=== PATIENT | female | born 1975 | race Caucasian/White ===

== ENCOUNTER 2016-05-17 13:20 | Inpatient (IN) | payer BC ==
[2016-05-17] MEDS ORDERED: ACETAMINOPHEN IV (For NPO) 1,000 MG in EMPTY BAG 1 BAG IVPB ONE (13:41)
[2016-05-17] MEDS ORDERED: ONDANSETRON 4 MG/2 ML VIAL IVP STA (13:41)
[2016-05-17] MEDS ORDERED: SODIUM CHLORIDE 0.9% 1,000 ML IV STA (13:41)
[2016-05-17] MEDS ORDERED: RX INFO: IV CONTRAST WAS GIVEN 1 EACH MISC MISCELLANE PRN (13:49)
--- NOTE | 2016-05-17 13:53 | ED ---
Abdominal Pain HPI - General Source: patient, RN notes reviewed Mode of arrival: ambulatory Limitations: no limitations <Cailin Moore - Last Filed: 05/17/16 16:37> <Wisam Pettit - Last Filed: 05/17/16 16:42> - General Chief Complaint: Abdominal Pain Stated Complaint: Nausea/Lower Rt Abd Pain Time Seen by Provider: 05/17/16 13:31 - History of Present Illness Initial Comments: 41-year-old female presents to emergency department with a chief complaint of right lower quadrant abdominal pain. Patient states that last night she developed this right lower quadrant abdominal pain. Patient states that she noticed that she had a low-grade fever as well. Patient states she's had nausea without vomiting and has had a decreased appetite. Patient denies any surgeries on the abdomen. Patient states just progressively seemed to be worsening so she thought that she should be evaluated. Patient states that she does have an IUD in place. Patient denies any changes in urination. (Cailin Moore ) - Related Data Home Medications Medication Instructions Recorded Confirmed Docusate [Colace] 100 mg PO DAILY PRN 05/17/16 05/17/16 Allergies Allergy/AdvReac Type Severity Reaction Status Date / Time No Known Allergies Allergy Verified 05/17/16 13:44 Review of Systems ROS Other: All systems not noted in ROS Statement are negative. <Cailin Moore - Last Filed: 05/17/16 16:37> ROS Other: All systems not noted in ROS Statement are negative. <Wisam Pettit - Last Filed: 05/17/16 16:42> ROS Statement: Those systems with pertinent positive or pertinent negative responses have been documented in the HPI. Past Medical History Past Medical History: No Reported History History of Any Multi-Drug Resistant Organisms: None Reported Past Surgical History: Orthopedic Surgery Past Psychological History: No Psychological Hx Reported Smoking Status: Current every day smoker Past Alcohol Use History: Occasional Past Drug Use History: None Reported <Cailin Moore - Last Filed: 05/17/16 16:37> General Exam Limitations: no limitations <Cailin Moore - Last Filed: 05/17/16 16:37> General appearance: alert, anxious Head exam: Present: atraumatic, normocephalic, normal inspection Eye exam: Present: normal appearance, PERRL, EOMI. Absent: scleral icterus, conjunctival injection, periorbital swelling ENT exam: Present: normal exam, mucous membranes dry Neck exam: Present: normal inspection. Absent: tenderness, meningismus, lymphadenopathy Respiratory exam: Present: rhonchi. Absent: respiratory distress, rales, stridor Cardiovascular Exam: Present: regular rate, normal rhythm, normal heart sounds. Absent: systolic murmur, diastolic murmur, rubs, gallop, clicks GI/Abdominal exam: Present: soft, distended, guarding (RLQ), normal bowel sounds. Absent: tenderness, rebound, rigid Extremities exam: Present: normal inspection, full ROM, normal capillary refill. Absent: tenderness, pedal edema, joint swelling, calf tenderness Back exam: Present: normal inspection Neurological exam: Present: alert, oriented X3, CN II-XII intact Psychiatric exam: Present: normal affect, normal mood Skin exam: Present: warm, dry, intact, normal color. Absent: rash <Wisam Pettit - Last Filed: 05/17/16 16:42> - General Exam Comments Initial Comments: General: The patient is awake and alert, in no distress, and does not appear acutely ill. Eye: Pupils are equal, round and reactive to light, extra-ocular movements are intact; there is normal conjunctiva bilaterally. No signs of icterus. Ears, nose, mouth and throat: There are moist mucous membranes and no oral lesions. Neck: The neck is supple, there is no tenderness. Cardiovascular: There is a regular rate and rhythm. No murmur, rub or gallop is appreciated. Respiratory: Lungs are clear to auscultation, respirations are non-labored, breath sounds are equal. No wheezes, stridor, rales, or rhonchi. Gastrointestinal: Soft, non-distended, mild tenderness in right lower Quadrant of the abdomen without masses or organomegaly noted. There is no rebound or guarding present. No CVA tenderness. Patient has a mildly positive heel jar, mildly positive liters, negative Romberg's. Bowel sounds are unremarkable. Back: There is no tenderness to palpation in the midline. There is no obvious deformity. No rashes noted. Musculoskeletal: Normal ROM, no tenderness, There is no pedal edema. There is no calf tenderness or swelling. Sensation intact. Pulses equal bilaterally 2+. Neurological: CN II-XII intact, There are no obvious motor or sensory deficits. Coordination appears grossly intact. Speech is normal. Skin: Skin is warm and dry and no rashes or lesions are noted. Psychiatric: Cooperative, appropriate mood & affect, normal judgment. (Cailin Moore) Course <Cailin Moore - Last Filed: 05/17/16 16:37> <Wisam Pettit - Last Filed: 05/17/16 16:42> Vital Signs 05/17/16 13:27 Temperature 100.7 F H Pulse Rate 74 Respiratory 20 Rate Blood Pressure 133/73 O2 Sat by Pulse 96 Oximetry - Reevaluation(s) Reevaluation #1: 05/17/16 16:38 Dr. Koch did not request antibiotics for the patient. (Cailin Moore) Reevaluation #2: 05/17/16 16:41 With patient regarding findings, call Dr. Koch regarding patient's findings on CAT scan, patient is aware of uterus fibroids and possible CVA (Wisam Pettit) Medical Decision Making - Lab Data Result diagrams: 05/17/16 13:50 05/17/16 13:50 - Radiology Data Radiology results: report reviewed, image reviewed <Cailin Moore - Last Filed: 05/17/16 16:37> - Lab Data Result diagrams: 05/17/16 13:50 05/17/16 13:50 - Radiology Data Radiology results: report reviewed (CT pelvis positive for appendicitis) <Wisam Pettit - Last Filed: 05/17/16 16:42> - Medical Decision Making 41-year-old female presents emergency Department chief complaint of right lower quadrant abdominal pain. This time CAT scan results reviewed as well as patient 's laboratory. Tender suspicion for acute appendicitis. Dr. Koch was paged for the patient. We did also discuss the [facility] results we discussed follow-up with [facility] patient states that she will do this. This and the patient will be admitted to Dr. Koch. And she will take him to or at this time. (Cailin Moore) 41 female at ER for evaluation of abdominal pain, positive CT for appendicitis, patient will be admitted for surgical intervention (Wisam Pettit) - Lab Data Lab Results 05/17/16 05/17/16 05/17/16 Range/Units 13:50 13:50 13:50 WBC 12.9 H (3.8-10.6) k/uL RBC 4.31 (3.80-5.40) m/uL Hgb 13.8 (11.4-16.0) gm/dL Hct 40.9 (34.0-46.0) % MCV 94.9 (80.0-100.0) fL MCH 32.0 (25.0-35.0) pg MCHC 33.7 (31.0-37.0) g/dL RDW 12.4 (11.5-15.5) % Plt Count 267 (150-450) k/uL Neutrophils % 85 % Lymphocytes % 6 % Monocytes % 8 % Eosinophils % 0 % Basophils % 0 % Neutrophils # 11.0 H (1.3-7.7) k/uL Lymphocytes # 0.8 L (1.0-4.8) k/uL Monocytes # 1.0 (0-1.0) k/uL Eosinophils # 0.0 (0-0.7) k/uL Basophils # 0.0 (0-0.2) k/uL Sodium 137 (137-145) mmol/L Potassium 4.0 (3.5-5.1) mmol/L Chloride 101 (98-107) mmol/L Carbon Dioxide 27 (22-30) mmol/L Anion Gap 9 mmol/L BUN 13 (7-17) mg/dL Creatinine 0.60 (0.52-1.04) mg/dL Est GFR (MDRD) Af Amer >60 (>60 ml/min/1.73 sqM) Est GFR (MDRD) Non-Af >60 (>60 ml/min/1.73 sqM) Glucose 107 H (74-99) mg/dL Plasma Lactic Acid [place] 0.9 (0.7-2.0) mmol/L Calcium 9.5 (8.4-10.2) mg/dL Total Bilirubin 1.2 (0.2-1.3) mg/dL AST 25 (14-36) U/L ALT 29 (9-52) U/L Alkaline Phosphatase 66 (38-126) U/L Total Protein 7.1 (6.3-8.2) g/dL Albumin 4.3 (3.5-5.0) g/dL Amylase 54 (30-110) U/L Lipase 58 (23-300) U/L Urine Color Urine Appearance (Clear) Urine pH (5.0-8.0) Ur Specific [place] (1.001-1.035) Urine Protein (Negative) Urine Glucose (UA) (Negative) Urine Ketones (Negative) Urine Blood (Negative) Urine Nitrite (Negative) Urine Bilirubin (Negative) Urine Urobilinogen (<2.0) mg/dL Ur Leukocyte Esterase (Negative) 05/17/16 Range/Units 14:30 WBC (3.8-10.6) k/uL RBC (3.80-5.40) m/uL Hgb (11.4-16.0) gm/dL Hct (34.0-46.0) % MCV (80.0-100.0) fL MCH (25.0-35.0) pg MCHC (31.0-37.0) g/dL RDW (11.5-15.5) % Plt Count (150-450) k/uL Neutrophils % % Lymphocytes % % Monocytes % % Eosinophils % % Basophils % % Neutrophils # (1.3-7.7) k/uL Lymphocytes # (1.0-4.8) k/uL Monocytes # (0-1.0) k/uL Eosinophils # (0-0.7) k/uL Basophils # (0-0.2) k/uL Sodium (137-145) mmol/L Potassium (3.5-5.1) mmol/L Chloride (98-107) mmol/L Carbon Dioxide (22-30) mmol/L Anion Gap mmol/L BUN (7-17) mg/dL Creatinine (0.52-1.04) mg/dL Est GFR (MDRD) Af Amer (>60 ml/min/1.73 sqM) Est GFR (MDRD) Non-Af (>60 ml/min/1.73 sqM) Glucose (74-99) mg/dL Plasma Lactic Acid [place] (0.7-2.0) mmol/L Calcium (8.4-10.2) mg/dL Total Bilirubin (0.2-1.3) mg/dL AST (14-36) U/L ALT (9-52) U/L Alkaline Phosphatase (38-126) U/L Total Protein (6.3-8.2) g/dL Albumin (3.5-5.0) g/dL Amylase (30-110) U/L Lipase (23-300) U/L Urine Color Yellow Urine Appearance Clear (Clear) Urine pH 7.5 (5.0-8.0) Ur Specific [place] 1.018 (1.001-1.035) Urine Protein Trace H (Negative) Urine Glucose (UA) Negative (Negative) Urine Ketones Negative (Negative) Urine Blood Negative (Negative) Urine Nitrite Negative (Negative) Urine Bilirubin Negative (Negative) Urine Urobilinogen <2.0 (<2.0) mg/dL Ur Leukocyte Esterase Negative (Negative) Disposition Time of Disposition: 16:18 Decision Date: 05/17/16 Decision Time: 16:18 <Cailin Moore - Last Filed: 05/17/16 16:37> <Wisam Pettit - Last Filed: 05/17/16 16:42> Clinical Impression: Acute appendicitis Disposition: ADMITTED IP TO THIS [facility] Condition: Stable Referrals: Girma Bernstein DO [Primary Care Provider] - 1-2 days
[2016-05-17 14:17] LABS: Basophils % (A) 0 %; CH 32.7; CHCM 34.6; Eosinophils % (A) 0 %; HCT 40.9 % (34.0-46.0); HDW 2.31; HGB 13.8 gm/dL (11.4-16.0); Luc # (Auto) 0.16; Luc % (Auto) 1; Lymphocytes # (A) 0.8 k/uL (1.0-4.8); Lymphocytes % (A) 6 %; MCHC 33.7 g/dL (31.0-37.0); MCV 94.9 fL (80.0-100.0); Mean Platelet Volume 7.4; Monocytes % (A) 8 %; Neutrophils % (A) 85 %; RBC 4.31 m/uL (3.80-5.40); RDW 12.4 % (11.5-15.5); WBC 12.9 k/uL (3.8-10.6); WBC (Perox) 13.05
[2016-05-17 14:25] LABS: ALT 29 U/L (9-52); AST 25 U/L (14-36); Alkaline Phosphatase 66 U/L (38-126); Amylase 54 U/L (30-110); Anion Gap 9 mmol/L; Blood Urea Nitrogen 13 mg/dL (7-17); Calcium 9.5 mg/dL (8.4-10.2); Carbon Dioxide 27 mmol/L (22-30); Chloride 101 mmol/L (98-107); Glucose 107 mg/dL (74-99); Non-African American GFR(MDRD) >60 (>60 ml/min/1.73 sqM); Sodium 137 mmol/L (137-145); Total Bilirubin 1.2 mg/dL (0.2-1.3); Total Protein 7.1 g/dL (6.3-8.2)
[2016-05-17 14:48] LABS: Appearance,Urine Clear (Clear); Bilirubin,Urine Negative (Negative); Glucose,Urine (UA) Negative (Negative); Ketones,Urine Negative (Negative); Leukocyte Esterase,Urine Negative (Negative); Nitrite,Urine Negative (Negative); PH, Urine 7.5 (5.0-8.0); Protein,Urine Trace (Negative); Specific Gravity,Urine 1.018 (1.001-1.035); UA Billing (MACRO vs. MICRO) CHEM; Urobilinogen,Urine <2.0 mg/dL (<2.0)
--- NOTE | 2016-05-17 16:14 | CT ---
EXAMINATION TYPE: CT abdomen pelvis w con DATE OF EXAM: 05/17/2016 3:40 PM HISTORY: RLQ pain CT DLP: 989mGycm Automated Exposure Control for Dose Reduction was Utilized. CONTRAST: CT scan of the abdomen and pelvis is performed without oral but with IV Contrast, patient injected wi th 100 ml mL of Omnipaque 300. COMPARISON: None. FINDINGS: LUNG BASES: No significant abnormality is appreciated. LIVER/GB: No significant abnormality is appreciated. PANCREAS: No significant abnormality is seen. SPLEEN: No significant abnormality is seen. ADRENALS: No significant abnormality is seen. KIDNEYS: No significant abnormality is seen. BOWEL: Evaluation of bowel is suboptimal due to lack of enteric contrast. Indication patient has very little intra-abdominal fat. There is no suspicious small or large bowel dilatation. There is abnorma l tubular shaped structure in the right lower quadrant from base of cecum measuring up to 8 mm with s urrounding fat stranding and ill-defined fluid worrisome for acute appendicitis. Appendix is identifi ed on coronal images 33 through 43 and axial images 47 through 52. No free air or adjacent well-forme d fluid collection/abscess is identified. UTERUS/ADNEXA: Uterus is heterogeneous in appearance, anteverted in shape, and somewhat prominent in size. There is more suspicious heterogeneous pelvic mass in the lower uterine segment/cervix measurin g 8.1 x 7.6 cm, cervical neoplasm needs to BE considered. Correlation with Pap smear and pelvic exam is advised. Differential includes a large inferior fibroid but this is felt less likely. There is sm all to moderate amount of free fluid in the pelvis right of midline adjacent to sigmoid rectal colon on axial image 68 extending superiorly. There are additional heterogeneous lesions scattered througho ut the uterus suspicious for fibroids. Normal-appearing ovaries are not well seen. LYMPH NODES: No greater than 1cm abdominal or pelvic lymph nodes are appreciated. OSSEOUS STRUCTURES: Disc space narrowing with sclerosis lumbosacral junction is noted. OTHER: No significant additional abnormality is seen. IMPRESSION: 1. Suboptimal study with CT findings suggesting acute appendicitis as detailed above. 2. Abnormal pelvic findings with small to moderate free fluid in pelvis seen heterogeneous fibroid ut erus, heterogeneous cervical mass could reflect large inferior fibroid but cervical mass/neoplasm is not excluded. Correlation with Pap smear and direct pelvic exam advised. Case discussed with ordering emergency care physician assistant store director via telephone at time of dictation.
[2016-05-17] MEDS ORDERED: HYDROmorphone 1 MG/ML 1 ML SYRINGE IV PRN (16:18)
[2016-05-17] MEDS ORDERED: NALOXONE 0.4 MG/ML 1 ML VIAL IV PRN (16:18)
[2016-05-17] MEDS ORDERED: ONDANSETRON 4 MG/2 ML VIAL IVP PRN ×2 (16:18→17:41)
[2016-05-17] MEDS ORDERED: SODIUM CHLORIDE 0.9% 1,000 ML IV SCH (16:30)
[2016-05-17] MEDS ORDERED: HEPARIN SODIUM,PORCINE 5,000 UNIT/ML 1 ML VIAL SQ ONE (17:27)
[2016-05-17] MEDS ORDERED: AMPICILLIN-SULBACTAM 3 GM in SODIUM CHLORIDE 0.9% 100 ML IVPB STA (17:27)
[2016-05-17] MEDS ORDERED: ceFAZolin 2 GM in SODIUM CHLORIDE 0.9% 100 ML IVPB ONE (17:35)
[2016-05-17] MEDS ORDERED: PROPOFOL 10 MG/ML 20 ML VIAL IV ONE (17:36)
[2016-05-17] MEDS ORDERED: IV FLUID CONTINUATION 1,000 ML IV ONE ×2 (17:36)
[2016-05-17] MEDS ORDERED: GLYCOPYRROLATE 0.2 MG/ML 2 ML VIAL ONE (17:36)
[2016-05-17] MEDS ORDERED: LIDOCAINE 1% INJ 10MG/ML (20 ML MDV) ONE (17:36)
[2016-05-17] MEDS ORDERED: fentaNYL (PF) 50 MCG/ML 2 ML AMP ONE (17:36)
[2016-05-17] MEDS ORDERED: NEOSTIGMINE 1 MG/ML 10 ML VIAL ONE (17:36)
[2016-05-17] MEDS ORDERED: ONDANSETRON 4 MG/2 ML VIAL ONE (17:36)
[2016-05-17] MEDS ORDERED: MIDAZOLAM 2 MG/2 ML VIAL ONE (17:36)
[2016-05-17] MEDS ORDERED: KETOROLAC 30 MG/ML 1 ML VIAL ONE (17:36)
[2016-05-17] MEDS ORDERED: ROCURONIUM BROMIDE 10 MG/ML 10 ML VIAL IV ONE (17:36)
--- NOTE | 2016-05-17 17:39 | P.GSHP ---
History of Present Illness H&P Date: 05/17/16 Chief Complaint: Acute appendicitis 41 years old female presents with one-day history of right lower quadrant pain. No fever, chills or rigors. Loss of appetite. Known uterine fibroids with heavy menstrual flow, currently controlled with IUD placement. She follows up with Dr. Zazueta as outpatient. No other medical conditions - Review of Systems Comment: All negative except stated in history of present illness Past Medical History Past Medical History: No Reported History History of Any Multi-Drug Resistant Organisms: None Reported Past Surgical History: Orthopedic Surgery Past Psychological History: No Psychological Hx Reported Smoking Status: Current every day smoker Past Alcohol Use History: Occasional Past Drug Use History: None Reported Medications and Allergies Home Medications Medication Instructions Recorded Confirmed Type Docusate [Colace] 100 mg PO DAILY PRN 05/17/16 05/17/16 History Allergies Allergy/AdvReac Type Severity Reaction Status Date / Time No Known Allergies Allergy Verified 05/17/16 13:44 Surgical - Exam Vital Signs Temp Pulse Resp BP Pulse Ox 100.7 F H 74 20 133/73 96 05/17/16 13:27 05/17/16 13:27 05/17/16 13:27 05/17/16 13:27 05/17/16 13:27 General: Patient is alert and oriented to time, place and person and cooperative with exam. . HEENT: No pallor, no icterus Chest: Bilateral equal breath sounds present. No wheezes, no crackles. Cardiovascular: Regular rate and rhythm. Abdomen: Localized right lower quadrant tenderness. Integumentary: No active ulcers or discharge. Neurologic: Cranial nerves II-XII intact. Strength upper and lower extremities 5/5. No focal neurologic deficits. Gait is normal. Psychiatric: No anxiety or psychosis. Results - Labs 05/17/16 13:50 05/17/16 13:50 - Imaging CT scan - abdomen: other (Computed tomography scan of the abdomen and pelvis reviewed. Dilated appendix with fat stranding suggestive of acute appendicitis. Free fluid in the pelvis. Large uterus or possibly fibroids with intrauterine device) Assessment and Plan (1) Fibroid Status: Acute (2) Acute appendicitis Status: Acute Plan: 1. Acute appendicitis 2. Fibroid uterus 3. Informed consent obtained from the patient after explaining the risks, benefits and potential complications and she elected to undergo laparoscopic appendectomy possible open. The risks including bleeding, infection, possibility of converting into open, partial colectomy were discussed and patient elected to undergo the procedure 4. Heparin 5000 units subcu to his injection 1 5. Bilateral SCDs 6. Ancef 2 g IV piggyback 1
[2016-05-17] MEDS ORDERED: HYDROmorphone 1 MG/ML 1 ML SYRINGE IVP PRN (17:40)
[2016-05-17] MEDS ORDERED: BUPIVACAIN-EPI 0.25%-1:200,000 30 ML VIAL SQ ONE ×3 (17:41→17:58)
[2016-05-17] MEDS ORDERED: SODIUM CHLORIDE 0.9% 100 ML with ceFAZolin 2,000 MG IV ONE ×4 (17:42)
--- NOTE | 2016-05-17 18:33 | P.OP ---
Date of Procedure: 05/17/16 Preoperative Diagnosis: Acute appendicitis Enlarged uterus secondary to fibroid Small umbilical hernia defect-reducible Postoperative Diagnosis: Same Procedure(s) Performed: Laparoscopic appendectomy Primary umbilical hernia repair with out mesh Implants: NA Anesthesia: EVA, local Surgeon: Marlee Koch Pathology: other Condition: other (ASA 1 E) Disposition: PACU Indications for Procedure: 41 years old female with known history of uterine fibroids comes with a one-day history of right lower quadrant pain. CT suggestive of acute appendicitis. Informed consent obtained and patient elected to undergo laparoscopic appendectomy possible open. Operative Findings: Acute suppurative appendicitis Description of Procedure: The patient was brought to the operating room and placed in supine position with left arm tucked and a footboard was placed. General anesthesia with endotracheal intubation was performed as per anesthesia team. A Fagan catheter was inserted under sterile aseptic precautions. Chlorhexidine was used to prep the abdomen followed by application of sterile drapes. A timeout was performed to verify correct patient and correct procedure. Patient was confirmed to receive perioperative IV antibiotics, subcutaneous heparin for VTE prophylaxis and bilateral SCDs were placed. A 5 mm skin incision was made in the left anterior axillary line and a Veress needle was inserted into the peritoneal cavity and CO2 insufflated to a pressure of 15 mmHg. A 5 mm Optiview trocar was loaded on a 5 mm 30 laparoscope and peritoneal cavity was entered under direct vision. An additional 5 mm trocar was placed in the suprapubic location in midline and a 12 mm trocar in the supraumbilical location through the umbilical hernia defect Patient was placed in Trendelenburg with right side up. The appendix was identified. It appeared inflamed. There were fibrinopurulent exudates in the right lower quadrant. The appendix was grasped using a laparoscopic [place] instrument. A suction irrigation device was used to gently dissecting appendix from the surrounding tissue. All the fibrinous exudates were removed. A window was made in the mesoappendix close to the cecal base using a [place] dissector. Laparoscopic Ligasure was used to divide the mesoappendix. No bleeding noted from the mesoappendiceal stump. The appendix was divided at its base, at the confluence of three tenia using Ethicon stapler 45 blue load. The staple line was intact without evidence of bleeding. The appendix was placed in an endocatch bag and was retrieved through the infraumbilical port site. All the trocar sites were examined and no evidence of bleeding. Excess fluid was suctioned out. The 12 mm trocar site including the umbilical hernia was closed using three transfascial sutures of 0 Vicryl which were placed using a Godwin Haley device. Local anesthetic was infiltrated along all the ports sites. The sponge, instrument and needle count were correct x2. CO2 gas was evacuated and trocars were removed. 4-0 Monocryl was used to close the skin incisions followed by Dermabond skin glue. Patient tolerated the procedure well and was taken to post anesthesia care unit in stable condition.
[2016-05-17 20:05] VITALS: BMI 22.4
[2016-05-17] MEDS: DEXTROSE 5%-0.45% NACL 1,000 ML IV SCH (20:34)
[2016-05-17] MEDS: ACETAMINOPHEN TAB 325 MG TAB PO PRN (22:44)
[2016-05-18] MEDS: ACETAMINOPHEN TAB 325 MG TAB PO PRN ×2 (04:36→11:10)
[2016-05-18] MEDS: DEXTROSE 5%-0.45% NACL 1,000 ML IV SCH (04:38)
[2016-05-18 07:44] LABS: Basophils % (A) 0 %; CH 32.6; CHCM 33.9; Eosinophils % (A) 1 %; HCT 37.3 % (34.0-46.0); HDW 2.27; HGB 12.2 gm/dL (11.4-16.0); Luc # (Auto) 0.09; Luc % (Auto) 1; Lymphocytes # (A) 0.7 k/uL (1.0-4.8); Lymphocytes % (A) 10 %; MCH 31.8 pg (25.0-35.0); MCHC 32.9 g/dL (31.0-37.0); MCV 96.7 fL (80.0-100.0); Mean Platelet Volume 7.5; Monocytes # (A) 0.4 k/uL (0-1.0); Monocytes % (A) 5 %; Neutrophils # (A) 6.1 k/uL (1.3-7.7); Neutrophils % (A) 83 %; RBC 3.85 m/uL (3.80-5.40); RDW 12.4 % (11.5-15.5); WBC 7.4 k/uL (3.8-10.6); WBC (Perox) 8.19
[2016-05-18 07:49] LABS: ALT 19 U/L (9-52); AST 19 U/L (14-36); Alkaline Phosphatase 51 U/L (38-126); Anion Gap 7 mmol/L; Blood Urea Nitrogen 7 mg/dL (7-17); Calcium 8.7 mg/dL (8.4-10.2); Carbon Dioxide 27 mmol/L (22-30); Chloride 106 mmol/L (98-107); Glucose 111 mg/dL (74-99); Non-African American GFR(MDRD) >60 (>60 ml/min/1.73 sqM); Sodium 140 mmol/L (137-145); Total Bilirubin 1.1 mg/dL (0.2-1.3); Total Protein 5.9 g/dL (6.3-8.2)
--- NOTE | 2016-05-18 09:02 | P.OBCN ---
History of Present Illness Consult date: 05/18/16 Requesting physician: Girma Bernstein Reason for consult: pelvic mass Chief complaint: acute appendicitis status post appendectomy History of present illness: patient is a 41-year-old female well known to me from previous visits. I did place a Mirena IUD in approximately 2 years ago for menorrhagia. She has known fibroid uterus and in speaking with her this morning she related that we had talked about potentially doing hysterectomy a couple of years ago due to the large fibroid but she had opted for a more conservative treatment plan. I did review her chart briefly and did note that she had a normal Pap smear in July 2015. We will more thoroughly go through the chart once I get back to my office so that I can review past ultrasounds and have a comparison. We'll order an ultrasound for this morning transvaginally so we have some type of idea of exactly what we're looking at within her uterus. Pelvic exam is performed uterus is slightly enlarged and globular. Cervix is shortened and cervix is open approximately 1 cm with a palpable fullness in the posterior aspect of the lower uterine segment/paracervical region. I suspect this represents the fibroid. While I cannot say for certain she does not have some type cancer of the cervix or uterus, she does have a history of fibroids and this seems at least at this time to be more likely scenario. We'll have her get the ultrasound today she is being discharged later today from her surgery. We'll plan to see her in the office in 1 week to compare films and make a long-term treatment plan. Past Medical History Past Medical History: No Reported History History of Any Multi-Drug Resistant Organisms: None Reported Past Surgical History: Orthopedic Surgery Additional Past Surgical History / Comment(s): Right Meniscus repair. ACL repair on right x2 Past Anesthesia/Blood Transfusion Reactions: No Reported Reaction Past Psychological History: No Psychological Hx Reported Smoking Status: Current every day smoker Past Alcohol Use History: Occasional Past Drug Use History: None Reported - Past Family History Father Family Medical History: Hypertension Medications and Allergies Home Medications Medication Instructions Recorded Confirmed Type Docusate [Colace] 100 mg PO DAILY PRN 05/17/16 05/17/16 History Allergies Allergy/AdvReac Type Severity Reaction Status Date / Time No Known Allergies Allergy Verified 05/17/16 20:05 Exam Osteopathic Statement: *. No significant issues noted on an osteopathic structural exam other than those noted in the History and Physical/Consult. - Vital Signs Vital signs: Vital Signs Temp Pulse Pulse Resp BP BP Pulse Ox 05/18/16 07:00 98.1 F 65 20 114/72 97 05/18/16 04:49 98.1 F 76 18 117/64 97 05/17/16 22:54 98.9 F 70 16 116/69 98 05/17/16 21:20 64 16 117/70 100 05/17/16 21:05 69 16 113/70 97 05/17/16 20:50 62 16 118/73 98 05/17/16 20:35 66 16 116/70 96 05/17/16 20:20 66 16 119/70 99 05/17/16 20:05 66 16 117/71 100 05/17/16 19:50 64 16 117/70 100 05/17/16 19:35 69 16 113/70 97 05/17/16 19:25 16 05/17/16 19:20 97.7 F 62 16 118/73 05/17/16 19:00 66 18 129/75 96 05/17/16 18:46 74 18 127/67 100 05/17/16 18:35 97.7 F 76 16 125/71 100 05/17/16 17:29 97.7 F 64 16 117/70 98 05/17/16 16:43 99.2 F 73 18 128/76 97 Intake and Output 05/17/16 05/18/16 05/18/16 22:59 06:59 14:59 Intake Total 900 400 Output Total 305 400 400 Balance 595 0 -400 Intake: IV 700 Oral 200 400 Output: Urine 300 400 400 Estimated Blood Loss 5 Other: Voiding Method Toilet Toilet # Voids 1 1 Weight 74.843 kg Results Result Diagrams: 05/18/16 07:08 05/18/16 07:08 Abnormal Lab Results - Last 24 Hours (Table) 05/18/16 05/18/16 Range/Units 07:08 07:08 Lymphocytes # 0.7 L (1.0-4.8) k/uL Glucose 111 H (74-99) mg/dL Total Protein 5.9 L (6.3-8.2) g/dL Albumin 3.3 L (3.5-5.0) g/dL
--- NOTE | 2016-05-18 09:40 | P.DS ---
Providers Date of admission: 05/17/16 16:42 Expected date of discharge: 05/18/16 Attending physician: Marlee Alaniz Consults: 05/17/16 17:12 Consult Physician Routine Consulting Provider: Robbi Cottrell Consult Reason/Comments: Fibroids Do you want consulting provider notified?: Already Contacted Primary care physician: [facility] Course: A 41-year-old female presented with a one-day history of right lower quadrant abdominal pain. Patient denied any fever chills or rigors. Denied a loss of appetite. Patient does have a known history of uterine fibroids with heavy menstrual flow currently controlled with an IUD placement. In the outpatient setting patient stated that she does follow-up with [facility] Dr. cottrell patient was seen in the emergency room and a Computed tomography scan of the abdomen and pelvis showed evidence suggestive of an acute appendicitis. Patient elected to undergo laparoscopic appendectomy with a primary umbilical hernia repair without mesh. Patient is being treated for acute appendicitis. There was a small umbilical hernia defect reducible. Postop the patient was seen by [facility] Dr. cottrell who ordered an ultrasound to be done of the pelvic. After the ultrasound the patient be discharged follow-up in the office in one week and make a long-term treatment plan at that time.. Postop patient was up ambulating remained afebrile Tylenol is effective for pain control patient was felt to be hemodynamically stable and appropriate to proceed with a discharge to home Impression discharge diagnosis Present on admission one day history of right lower quadrant pain likely due to an acute appendicitis Postop May 17 upper as copy appendectomy with a primary umbilical hernia repair without mesh Known enlarged uterus secondary to a fibroid History of menorrhagia with an IUD placed approximately 2 years ago Present on admission febrile leukocytosis meet SIRS criteria no evidence of sepsis suspect due to acute appendicitis resolved The above dictated assessment and findings were discussed with dr alaniz Impression and the plan of care have been dictated as directed. Kerry Rogel nurse practitioner acting as a scribe for dr alaniz Patient Condition at Discharge: Stable Plan - Discharge Summary Discharge Medication List Docusate [Colace] 100 mg PO DAILY PRN 05/17/16 [History] Acetaminophen Tab [Tylenol] 650 mg PO Q6HR PRN #0 tab 05/18/16 [Rx] Follow up Appointment(s)/Referral(s): Robbi Cottrell DO [Doctor of Osteopathic Medicine] - 05/26/16 3:30 pm Girma Bernstein DO [Primary Care Provider] - 1-2 days Marlee Alaniz MD [STAFF PHYSICIAN] - 1 Week Activity/Diet/Wound Care/Special Instructions: A return to work after being seen in a follow-up visit dr alaniz No heavy lifting over 10 pounds until seen in office visit in one week Discharge Disposition: HOME SELF-CARE
--- NOTE | 2016-05-18 10:49 | US ---
EXAMINATION TYPE: US transvaginal DATE OF EXAM: 05/18/2016 10:35 AM COMPARISON: CT abdomen pelvis from yesterday CLINICAL HISTORY: cervical mass. Abnormal recent CT. TECHNIQUE: Transvaginal (TV) only per Date of LMP: Patient has IUD, she did have some spotting x 1 week prior and believes this could have been her cycle EXAM MEASUREMENTS: Uterus: 10.5 x 6.4 x 8.9 cm Endometrial Stripe: 1.0 cm Right Ovary: not visualized cm Left Ovary: 3.6 x 2.2 x 2.1 cm TECHNOLOGIST IMPRESSION: 1. Uterus: Anteverted Fibroid uterus, large mass probably in cervix, however it is difficult to as certain, mass displaces things and does have the appearance of a fibroid measuring 7.4 x 6.1 x 8.2cm 2. Endometrium: difficult to match with LMP since patient is unsure of cycle 3. Right Ovary: Obscured by overlying bowel gas 4. Left Ovary: wnl Spectral, color and waveform doppler imaging shows good arterial and venous flow within the ovaries ; there is no evidence for ovarian torsion. 5. Bilateral Adnexa: wnl 6. Posterior cul-de-sac: wnl Initial images of the cervix show ill-defined heterogeneous mass differential includes prominent lowe r uterine segment fibroid versus cervical mass/neoplasm. Uterus is markedly heterogeneous in appearan ce. Endometrial stripe is not well seen. IUD is likely satisfactory in position on CT as is central i n location, it is less well-seen on ultrasound. No free fluid is seen in pelvis. Left ovary is identified. Right ovary is not clearly seen. No suspicious adnexal masses are present. IMPRESSION: Corresponding to CT there is ill-defined heterogeneous large lower uterine segment or cer vical mass, differential remains low lying fibroid extending into cervix versus cervical mass/neoplas m. Background of heterogeneous fibroid uterus is noted making former favored over latter. Correlatio n with pelvic physical exam and Pap smear advised. Follow-up pelvic MRI may be beneficial to further assess.
[2016-05-18 11:04] VITALS: BP 118/77; PULSE 68; RESP 16; TEMP 98.9
== END 2016-05-18 13:41 | disposition home or self-care (01) | DRG 343 ==
LOC: EC 13:20 → 3SUR 16:42 → 6PED 18:44
PROVIDERS: ADMIT Surgery; ATTEND Surgery
PROC: 0WQF4ZZ Repair Abdominal Wall, Percutaneous Endoscopic Approach (ICD-10-PCS; 2016-05-17)
PROC: 0DTJ4ZZ Resection of Appendix, Percutaneous Endoscopic Approach (ICD-10-PCS; principal; 2016-05-17 17:30)
DX: K35.80 Unspecified acute appendicitis (principal); D25.9 Leiomyoma of uterus, unspecified; F17.200 Nicotine dependence, unspecified, uncomplicated; K42.9 Umbilical hernia without obstruction or gangrene; N92.0 Excessive and frequent menstruation with regular cycle; Z97.5 Presence of (intrauterine) contraceptive device; Z82.49 Family history of ischemic heart disease and other diseases of the circulatory system
CPT/HCPCS: 36415; 74177; 76830; 80053; 81003; 81025; 82150; 83605; 83690; 85025; 87040; 87086; 88304; 96361; 96365; 96375; 99285

== ENCOUNTER → 2016-08-07 | Outpatient (CLI) | payer BC ==
[2016-08-07 10:50] LABS: Basophils % (A) 1 %; CH 33.1; CHCM 33.2; Eosinophils # (A) 0.1 k/uL (0-0.7); Eosinophils % (A) 3 %; HCT 42.5 % (34.0-46.0); HDW 2.14; HGB 13.8 gm/dL (11.4-16.0); Luc # (Auto) 0.11; Luc % (Auto) 3; Lymphocytes # (A) 1.3 k/uL (1.0-4.8); Lymphocytes % (A) 40 %; MCH 32.5 pg (25.0-35.0); MCHC 32.4 g/dL (31.0-37.0); MCV 100.1 fL (80.0-100.0); Mean Platelet Volume 7.4; Monocytes # (A) 0.3 k/uL (0-1.0); Monocytes % (A) 10 %; Neutrophils # (A) 1.4 k/uL (1.3-7.7); Neutrophils % (A) 43 %; RBC 4.24 m/uL (3.80-5.40); RDW 13.2 % (11.5-15.5); WBC 3.3 k/uL (3.8-10.6); WBC (Perox) 3.34
[2016-08-07 11:20] LABS: Anion Gap 8 mmol/L; Blood Urea Nitrogen 14 mg/dL (7-17); Calcium 9.7 mg/dL (8.4-10.2); Carbon Dioxide 29 mmol/L (22-30); Chloride 103 mmol/L (98-107); Glucose 82 mg/dL (74-99); Non-African American GFR(MDRD) >60 (>60 ml/min/1.73 sqM); Potassium 4.9 mmol/L (3.5-5.1); Sodium 140 mmol/L (137-145)
== END | disposition home or self-care (01) ==
LOC: LABPAT 09:41
PROVIDERS: ATTEND Obstetrics & Gynecology
DX: Z01.812 Encounter for preprocedural laboratory examination (principal)
CPT/HCPCS: 80048; 85025; 86850; 86900; 86901

== ENCOUNTER 2016-08-17 06:04 | Inpatient (IN) | payer BC ==
[2016-08-13 17:00] VITALS: BMI 23.0
[~2016-08-17 06:04] MED LIST: DEXAMETHASONE SOD PHOSPHATE 10 MG/ML 1 ML VIAL IV ONE; HYDROmorphone 1 MG/ML 1 ML SYRINGE IVP PRN; ONDANSETRON 4 MG/2 ML VIAL IVP ONE; Pre Op ABX Message 1 EACH MISC MISCELLANE ONE; ceFAZolin 2 GM in SODIUM CHLORIDE 0.9% 100 ML IVPB ONE
[2016-08-17] MEDS ORDERED: LIDOCAINE 1% 20 ML VIAL (10MG/ML) FOR IV START INTRADERMA ONE (06:39)
[2016-08-17] MEDS: LACTATED RINGERS 1,000 ML IV SCH (06:39)
[2016-08-17] MEDS ORDERED: SCOPOLAMINE 1.5MG/72HR PATCH TRANSDERM STA (06:59)
--- NOTE | 2016-08-17 07:37 | P.HPOB ---
History of Present Illness H&P Date: 08/17/16 Chief Complaint: fibroid uterus Patient is a 41 year old female with a large cervical fibroid. Multiple u/s have been obtained on Annamaria and we have been following the fibroid for a number of years with minimal change. she is now uncomfortable with the fibroid with increase in pressure and pain and would like removal. she is sched for a TEMI poss bso due to location of the fibroid and will have stents placed prior to hysterecomy to help with ureteral location with large cervical fibroid. r/b/a reviewed with patient in detail and all questions are answered for her prior to surgery. Past Medical History Past Medical History: No Reported History Additional Past Medical History / Comment(s): FIBROID UTERUS. History of Any Multi-Drug Resistant Organisms: None Reported Past Surgical History: Appendectomy, Hernia Repair, Orthopedic Surgery Additional Past Surgical History / Comment(s): Right Meniscus repair. ACL repair on right x2. LAP APPENDECTOMY, UMB HERNIA 04/2016 Past Anesthesia/Blood Transfusion Reactions: Postoperative Nausea & Vomiting ( PONV) Smoking Status: Never smoker - Past Family History Father Family Medical History: Hypertension Medications and Allergies Home Medications Medication Instructions Recorded Confirmed Type Mirena Iud 1 applic INTRAUTERI CONTINUOUS 08/13/16 History Allergies Allergy/AdvReac Type Severity Reaction Status Date / Time No Known Allergies Allergy Verified 08/13/16 16:41 Exam Osteopathic Statement: *. No significant issues noted on an osteopathic structural exam other than those noted in the History and Physical/Consult. - Vital Signs Vital signs: Vital Signs Temp Pulse Resp BP Pulse Ox 08/17/16 06:23 98.0 F 48 L 18 126/73 99 - OBG Physical Exam Breast: both: normal (no masses) Abdomen: bowel sounds normal, no diffuse tenderness, no bruit present, no guarding noted, no hepatomegaly, no splenomegaly, no mass Vulva: both: normal Vagina: normal moisture, no discharge Cervix: lesion Uterus: enlarged Adnexa: both: normal
[2016-08-17] MEDS ORDERED: SUCCINYLCHOLINE CHLORIDE 100 MG/5 ML SYR IV ONE (07:39)
[2016-08-17] MEDS ORDERED: KETOROLAC 30 MG/ML 1 ML VIAL ONE (07:39)
[2016-08-17] MEDS ORDERED: fentaNYL (PF) 50 MCG/ML 2 ML AMP ONE (07:39)
[2016-08-17] MEDS ORDERED: NEOSTIGMINE 1 MG/ML 10 ML VIAL ONE (07:39)
[2016-08-17] MEDS ORDERED: HYDROmorphone (PF) 1 MG/ML ONE (07:39)
[2016-08-17] MEDS ORDERED: ePHEDrine 50 MG/ML 1 ML AMP ONE (07:39)
[2016-08-17] MEDS ORDERED: ROCURONIUM BROMIDE 10 MG/ML 10 ML VIAL IV ONE (07:39)
[2016-08-17] MEDS ORDERED: GLYCOPYRROLATE 0.2 MG/ML 2 ML VIAL ONE (07:39)
[2016-08-17] MEDS ORDERED: LIDOCAINE 1% INJ 10MG/ML (20 ML MDV) ONE (07:39)
[2016-08-17] MEDS ORDERED: PROPOFOL 10 MG/ML 20 ML VIAL IV ONE (07:39)
[2016-08-17] MEDS ORDERED: MIDAZOLAM 2 MG/2 ML VIAL ONE (07:39)
--- NOTE | 2016-08-17 08:17 | P.OP ---
Date of Procedure: 08/17/16 Preoperative Diagnosis: Uterine Fibroid Postoperative Diagnosis: Same Procedure(s) Performed: Cystoscopy with Bilateral Ureteral Catheter Insertion Implants: Anesthesia: EVA Surgeon: Dillon Jones Estimated Blood Loss (ml): 0 IV fluids (ml): 300 Pathology: none sent Condition: stable Disposition: PACU Indications for Procedure: The patient is a 41-year-old white female scheduled to undergo a TEMI for uterine fibroids. Due to the size of the uterus, ureteral catheter placement has been requested. Operative Findings: Normal bladder. Ureteral catheters passed up to the renal pelvis bilaterally without resistance. Description of Procedure: The patient was taken to the operating room and placed in the dorsolithotomy position, with legs supported in Bubba stirrups. The external genitalia was prepped and draped sterilely. The 30 lens was used to introduce the 19-Indian Stortz cystoscopic sheath through the urethra and into the bladder under direct vision. The bladder was examined in its entirety. Both ureteral orifices were of normal anatomic location and configuration, and clear urine effluxed from both. No tumors or foreign bodies were seen. A 5-Indian whistle-tip catheter was passed through the cystoscope. The left ureteral orifice was cannulated, and the ureteral catheter was advanced up to the left renal pelvis. The same was then repeated on the contralateral side. Both catheters passed without resistance. The bladder was emptied and the cystoscope removed. A 16-Indian Fagan catheter was placed. Using an 18-gauge needle, each of the ureteral catheters were passed through the wall of the Fagan catheter and into the lumen. The ureteral catheters were then tied to the Fagan catheter using silk suture, and the Fagan catheter was connected to gravity drainage.
[2016-08-17] MEDS ORDERED: LACTATED RINGERS 1,000 ML IV ONE (08:34)
[2016-08-17] MEDS ORDERED: SIMETHICONE 80 MG CHEWABLE PO PRN (09:41)
[2016-08-17] MEDS ORDERED: Acetaminophen-Codeine 300-30mg TAB PO PRN ×2 (09:41)
[2016-08-17] MEDS ORDERED: diphenhydrAMINE 50 MG/ML 1 ML VIAL IVP PRN (09:41)
[2016-08-17] MEDS ORDERED: HYDROmorphone PCA 5 MG/25 ML SYRINGE IV PRN (09:43)
[2016-08-17] MEDS ORDERED: NALOXONE 0.4 MG/ML 1 ML VIAL IV PRN (09:43)
--- NOTE | 2016-08-17 09:50 | P.OP ---
Date of Procedure: 08/17/16 Preoperative Diagnosis: Fibroid uterus: Large cervical fibroid Postoperative Diagnosis: Same Procedure(s) Performed: Total abdominal hysterectomy Implants: Anesthesia: EVA Surgeon: Robbi Cottrell Radio Electrician #1: Gil Lomeli Estimated Blood Loss (ml): 250 IV fluids (ml): 800 Urine output (ml): 200 Pathology: other (Uterus and cervix) Condition: stable Disposition: floor Indications for Procedure: Operative Findings: Large cervical fibroid with multiple other fibroids within the body of the uterus Description of Procedure: Patient was taken to the operating suite where a general anesthetic found be adequate. Initially Dr. Jones placed bilateral ureteral stents. These were used to help guide removal of uterus. Once stents were placed patient was positioned in a dorsal supine position and she was prepped and draped in the normal sterile fashion. A Pfannenstiel skin incision was then created and this incision was carried through to the underlying layer of the fascia with the second knife. Fascia was then nicked in midline and this opening was extended laterally with Valenzuela scissors. Superior and inferior aspect of this incision were then grasped tented up and bluntly and sharply dissected off the rectus muscles. Rectus muscles were then divided in the midline and blunt dissection through the peritoneum was made. This opening was then extended superiorly and inferiorly with good visualization of both bowel and bladder. Self-retaining retractors and placed Allis packed out of the operative field bladder blade was placed patient was then moved into a steep Trendelenburg position. Initially 2 long Edith clamps and were used to grasp the adnexa bilaterally and the uterus was elevated. He clamps then used to clamp over the round ligament and tubal complexes bilaterally. Tissues clamped cut and tied. Moving inferiorly then bites were taken across the upper half of the uterus clamping cutting and tying once the level of the uterine vascularity he clamps were clamped bilaterally. Bladder flap was then identified elevated and entered sharply with Metzenbaum scissors. Bladder was then bluntly dissected out of the operative field. He clamps then used to in a very slow and methodical stepwise fashion clamp down along the cardinal and uterosacral ligaments tissues clamped cut and tied taking multiple bites maintaining good distance from the ureter by evaluating stents throughout the process and keeping the bites inside of the previous bites. Tissue H time was clamped cut and tied moving inferiorly and then around the large cervical fibroid. Near the end uterosacral ligaments were grasped bilaterally tissues clamped cut and tied and entry into the vagina was noted. Gallbladder scissors were then used to follow the vaginal mucosa around circumferentially creating the opening to the vaginal cuff. Once uterus was completely from the vaginal cuff tissues were elevated and vaginal cuff was then closed with 0 Vicryl suture in a running locking fashion. Once this was completed minimal bleeding is noted and therefore pelvis is irrigated. One full liter of fluid was used to irrigate the abdomen. Once completed and after observing the vaginal cuff for approximately 5 minutes instruments and packing was removed. 3 hemostats were then placed in the peritoneum was reapproximated with 0 Vicryl. Peritoneal layer was then closed with 0 Vicryl one layer of 3-0 Vicryl was placed in deep subcuticular tissues to reapproximate skin and close space and the skin was then closed with 3-0 Vicryl on a Eugenio needle. Sponge, lap, needle counts were all correct 2 and patient was then taken to the recovery room in stable and satisfactory condition. Should be noted at the conclusion of the procedure we did remove Fagan and stents and replaced the Fagan catheter. Stents were intact. Urine essentially clear yellow initially slight tint was noted to the urine due to stent placement. This did clear and with placement of Fagan catheter urine grossly appears clear yellow.
[2016-08-17] MEDS: ONDANSETRON 4 MG/2 ML VIAL IVP PRN ×2 (13:30→21:50)
[2016-08-17] MEDS: SENNOSIDES-DOCUSATE SODIUM 1 EACH TAB PO SCH (21:38)
[2016-08-18] MEDS: ONDANSETRON 4 MG/2 ML VIAL IVP PRN (06:20)
[2016-08-18 06:39] LABS: Basophils % (A) 0 %; CH 33.3; CHCM 34.6; Eosinophils % (A) 0 %; HCT 34.9 % (34.0-46.0); HDW 2.23; HGB 11.9 gm/dL (11.4-16.0); Luc # (Auto) 0.17; Luc % (Auto) 2; Lymphocytes # (A) 1.3 k/uL (1.0-4.8); Lymphocytes % (A) 17 %; MCH 32.8 pg (25.0-35.0); MCV 96.6 fL (80.0-100.0); Mean Platelet Volume 7.8; Monocytes # (A) 0.7 k/uL (0-1.0); Monocytes % (A) 9 %; Neutrophils # (A) 5.6 k/uL (1.3-7.7); Neutrophils % (A) 72 %; RBC 3.61 m/uL (3.80-5.40); RDW 12.6 % (11.5-15.5); WBC 7.8 k/uL (3.8-10.6); WBC (Perox) 7.93
--- NOTE | 2016-08-18 08:28 | P.PN ---
Progress Note - Text Patient seen and evaluated postop day 1 from a total abdominal hysterectomy. In discussing care with nurses, it was noted that her urine did last until approximately 4 AM it is now clear and yellow, however she is still having significant amount of pain in around her incision area and due to the delay in the urine clearing to yellow we have discussed and we are planning to do a non- voiding cystogram sit we can verify integrity of the bladder. I am not expecting this to show a bladder injury, however due to above findings it is safer to determine whether or not there is a bladder injury before removing the Fagan. Should the bladder be intact will plan to remove the Fagan later today ambulate and advance her diet. Her pain is relatively well controlled on a EXECUTIVE COMMUNICATIONS MANAGER would EXECUTIVE COMMUNICATIONS MANAGER in place until we're certain that the bladder is intact. Vital signs are otherwise stable and she is afebrile. Her heart is regular, lungs are clear, extremities are without pain. Abdomen is soft incisions intact. There is some tenderness around the incision line. Assessment postop day 1. Plan non-voiding cystogram and continue close observation. We'll plan again to advance the diet change pain medication should the cystogram revealed an intact bladder.
--- NOTE | 2016-08-18 11:13 | FL ---
Nonvoiding cystogram HISTORY: Hematuria status post hysterectomy Patient's urinary bladder was filled in a retrograde manner with radiographic contrast under intermit tent fluoroscopic observation through an indwelling Fagan catheter. 300 cc were instilled. There is n o extravasation. Patient drain through the Fagan following the procedure. IMPRESSION: No evident bladder extravasation
[2016-08-18] MEDS: LACTATED RINGERS 1,000 ML IV SCH (11:32)
[2016-08-18] MEDS: KETOROLAC 30 MG/ML 1 ML VIAL IVP PRN ×2 (11:32→17:28)
[2016-08-18] MEDS: SENNOSIDES-DOCUSATE SODIUM 1 EACH TAB PO SCH ×2 (12:21→20:32)
[2016-08-18 20:43] VITALS: RESP 16
[2016-08-19 09:33] VITALS: BP 116/76; PULSE 56; TEMP 98.1
[2016-08-19] MEDS: SENNOSIDES-DOCUSATE SODIUM 1 EACH TAB PO SCH (09:34)
--- NOTE | 2016-08-19 09:37 | P.DS ---
Providers Date of admission: 08/17/16 06:04 Expected date of discharge: 08/19/16 Attending physician: Robbi Cottrell Primary care physician: [facility] Course: Patient is doing very well postop day 2. She is ambulating, voiding, and she is tolerating her diet. She voices no complaints and requests discharged home today. Vital signs are stable and afebrile. Heart regular, lungs clear, extremities without pain. Her abdomen is soft her incision is clean dry and intact. Positive bowel sounds are noted. Assessment postop day 2. Plan discharged home follow in 1 week. All of the questions are answered for her and she is stable for discharge at this time. Patient Condition at Discharge: Good Plan - Discharge Summary New Discharge Prescriptions: New Acetaminophen-Codeine 300-30mg [Tylenol #3] 1 tab PO Q4H PRN #30 tablet PRN Reason: Pain Ibuprofen [Motrin] 600 mg PO Q6HR PRN #30 tab PRN Reason: Pain No Action Acetaminophen Tab [Tylenol] 650 mg PO Q6HR PRN #0 tab PRN Reason: Mild Pain Or Fever > 100.5 Mirena Iud 1 dose INTRAUTERI CONTINUOUS Discharge Medication List Acetaminophen Tab [Tylenol] 650 mg PO Q6HR PRN #0 tab 05/18/16 [Rx] Mirena Iud 1 dose INTRAUTERI CONTINUOUS 08/13/16 [History] Acetaminophen-Codeine 300-30mg [Tylenol #3] 1 tab PO Q4H PRN #30 tablet [Rx] Ibuprofen [Motrin] 600 mg PO Q6HR PRN #30 tab 08/19/16 [Rx] Follow up Appointment(s)/Referral(s): Robbi Cottrell DO [Doctor of Osteopathic Medicine] - 1 Week Activity/Diet/Wound Care/Special Instructions: The lifting, limit stairs and driving, and pelvic rest. If any high temperatures, heavy bleeding, or severe pain call my office Discharge Disposition: HOME SELF-CARE
[2016-08-19] MEDS ORDERED: IBUPROFEN 600 MG TAB PO STA (09:38)
== END 2016-08-19 11:15 | disposition home or self-care (01) | DRG 743 ==
LOC: 2ORMAIN 06:04 → 6PED 09:42
PROVIDERS: ADMIT Obstetrics & Gynecology; ATTEND Obstetrics & Gynecology
PROC: 0T788DZ Dilation of Bilateral Ureters with Intraluminal Device, Via Natural or Artificial Opening Endoscopic (ICD-10-PCS; 2016-08-17)
PROC: 0UT90ZZ Resection of Uterus, Open Approach (ICD-10-PCS; principal; 2016-08-17 07:15)
PROC: 0UTC0ZZ Resection of Cervix, Open Approach (ICD-10-PCS; 2016-08-17 07:15)
DX: D25.9 Leiomyoma of uterus, unspecified (principal); D26.0 Other benign neoplasm of cervix uteri; Z82.49 Family history of ischemic heart disease and other diseases of the circulatory system
CPT/HCPCS: 51610; 74450; 81025; 85025; 86850; 86900; 86901; 88307

== ENCOUNTER → 2020-10-03 | Outpatient (CLI) | payer BC ==
--- NOTE | 2020-10-07 13:52 | MM ---
Reason for exam: screening (asymptomatic). Last mammogram was performed 9 years ago. History: Patient is postmenopausal. Family history of breast cancer in paternal grandmother at age 92. Benign excisional biopsy of the right breast. Physical Findings: A clinical breast exam by your physician is recommended on an annual basis and results should be correlated with mammographic findings. MG Screening Mammo w CAD Bilateral CC and MLO view(s) were taken. No prior studies available for comparison. The breast tissue is heterogeneously dense. This may lower the sensitivity of mammography. No significant mass, suspicious calcification or other discrete abnormality is seen. ASSESSMENT: Negative, BI-RAD 1 RECOMMENDATION: Routine screening mammogram of both breasts in 1 year.
== END | disposition home or self-care (01) ==
LOC: RADMAMWWP 13:19
PROVIDERS: ATTEND Family Medicine
DX: Z12.31 Encounter for screening mammogram for malignant neoplasm of breast (principal); Z78.0 Asymptomatic menopausal state; Z80.3 Family history of malignant neoplasm of breast
CPT/HCPCS: 77067

== ENCOUNTER → 2022-01-30 | Outpatient (CLI) | payer BC ==
--- NOTE | 2022-01-30 10:25 | XR ---
EXAMINATION TYPE: XR shoulder complete RT DATE OF EXAM: 01/30/2022 COMPARISON: NONE HISTORY: Pain TECHNIQUE: Shoulder examined in 3 ejection FINDINGS: The humeral head articulates with the glenoid. The acromio-clavicular junction is within normal limits. Normal less than 1.0 cm. If there is clinica l concern for acromioclavicular joint separation, without with weight examination could be performed. No acute fractures or dislocations are evident. A follow up study can be performed 7-10 days from acute trauma for continued pain. IMPRESSION: 1. No acute osseous abnormality radiographically apparent.
== END | disposition home or self-care (01) ==
LOC: RADXRYALE 08:33
PROVIDERS: ATTEND Physician Assistant
DX: M25.511 Pain in right shoulder (principal)

== ENCOUNTER → 2022-02-12 | Outpatient (CLI) | payer BC ==
--- NOTE | 2022-02-12 11:49 | US ---
EXAMINATION TYPE: US pelvic complete DATE OF EXAM: 02/12/2022 COMPARISON: CLINICAL HISTORY: R10.9 Unspecifed abdominal pain. Partial hysterectomy x 4 years ago, still has both ovaries. Generalized pressure. TECHNIQUE: Transabdominal (TA). Transabdominal sonographic images of the pelvis were acquired. Date of LMP: Unknown EXAM MEASUREMENTS: Right Ovary: 3.7 x 2.1 x 2.2 cm Left Ovary: 3.0 x 2.0 x 1.8 cm 1. Uterus: Surgically absent 2. Endometrium: Surgically absent 3. Right Ovary: wnl 4. Left Ovary: wnl 5. Bilateral Adnexa: wnl 6. Posterior cul-de-sac: no free fluid Urinary bladder is sonolucent. IMPRESSION: 1. Unremarkable pelvic ultrasound
--- NOTE | 2022-02-12 12:02 | US ---
EXAMINATION TYPE: US abdomen complete DATE OF EXAM: 02/12/2022 COMPARISON: NONE CLINICAL HISTORY: R10.9 Unspecifed abdominal pain. Generalized pelvic pressure TECHNIQUE: Multiple sonographic images of the abdomen are obtained. FINDINGS: EXAM MEASUREMENTS: Liver Length: 14.8 cm Gallbladder Wall: 0.2 cm CBD: 0.4 cm Spleen: 8.6 cm Right Kidney: 10.2 x 5.21 x 4.4 cm Left Kidney: 10.8 x 4.8 x 4.9 cm Pancreas: wnl Liver: wnl Gallbladder: wnl Evidence for sonographic Krishnamurthy's sign: neg CBD: wnl Spleen: wnl Right Kidney: No hydronephrosis or masses seen, limited visualization of lower pole due to bowel gas Left Kidney: No hydronephrosis or masses seen Upper IVC: wnl Abd Aorta: No AAA visualized at time of scan IMPRESSION: 1. No suspicious abdomen ultrasound abnormality.
== END | disposition home or self-care (01) ==
LOC: RADUSWWP 09:40
PROVIDERS: ATTEND Family Medicine
DX: R10.9 Unspecified abdominal pain (principal)
CPT/HCPCS: 76700; 76856

== ENCOUNTER → 2022-02-20 | Outpatient (CLI) | payer BC ==
--- NOTE | 2022-02-21 06:12 | MR ---
EXAMINATION TYPE: MR shoulder RT wo con DATE OF EXAM: 02/20/2022 COMPARISON: Right shoulder x-ray January 30, 2022. HISTORY: Right shoulder pain x 1 year, palpable lump posterior aspect, lump placed. TECHNIQUE: Multiplanar, multisequence imaging of the right shoulder is performed without contrast. FINDINGS: Rotator Cuff: Focal partial tearing at articular surface distal supraspinatus tendon measuring 8 mm t ransversely coronal image 12. Infraspinatus tendon intact. Rotator cuff muscle bulk preserved. Acromioclavicular Joint: Slight superior positioning of the inferior margin distal clavicle relative to inferior margin of the distal acromion suggesting prior AC joint separation or injury. Glenohumeral Joint: No significant effusion. No significant spurring. Labrum: The labrum appears grossly intact given limitation of non-arthrogram study. Biceps Tendon: The long head of biceps is in normal location within bicipital groove. Bone marrow signal: Subchondral cystic change involving the superolateral humeral head extends edge inker heels iorly.. Other: No additional significant abnormality is appreciated. IMPRESSION: 1. Fraying and partial tearing at the articular surface of the distal supraspinatus tendon. No labral tear seen. Suspect old AC joint separation injury. Correlate clinically.
== END | disposition home or self-care (01) ==
LOC: RADMRIMAIN 19:15
PROVIDERS: ATTEND Physician Assistant
DX: M75.111 Incomplete rotator cuff tear or rupture of right shoulder, not specified as traumatic (principal)

== ENCOUNTER → 2023-04-16 | Outpatient (CLI) | payer BC ==
--- NOTE | 2023-04-19 19:32 | MM ---
Reason for Exam: Screening (asymptomatic). Last mammogram was performed 2 year(s) and 6 month(s) ago. Patient History: Menarche at age 12. First Full-Term at age 29. Hysterectomy at age 43. Postmenopausal. Patient has history of breast feeding. Currently using Estrogen, for 6 months. Benign Excisional Biopsy on the right side. Paternal grandmother had breast cancer, age 92. Risk Values: Yamila 5 year model risk: 1.3%. NCI Lifetime model risk: 12.1%. Prior Study Comparison: 10/08/2011 Bilateral Diagnostic Mammogram, [facility]. 10/03/2020 Bilateral Screening Mammogram, [facility]. Tissue Density: The breast tissue is heterogeneously dense. This may lower the sensitivity of mammography. Findings: Analyzed By CAD. Unchanged bilateral areas of asymmetric density. There is no suspicious group of microcalcifications or new suspicious mass in either breast. Overall Assessment: Benign, BI-RAD 2 Management: Screening Mammogram of both breasts in 1 year. . Patient should continue monthly self-breast exams. A clinical breast exam by your physician is recommended on an annual basis. This exam should not preclude additional follow-up of suspicious palpable abnormalities. Note on Yamila scores and lifetime risk: 1. A Yamila score greater than 3% is considered moderate risk. If this is the case, consider specialist referral to assess eligibility for a risk reducing agent. 2. If overall lifetime risk for the development of breast cancer is 20% or higher, the patient may qualify for future screening with alternating mammogram and breast MRI. Electronically signed and approved by: Nuris Mitchell M.D. Radiologist
== END | disposition home or self-care (01) ==
LOC: RADMAMWWP 09:07
PROVIDERS: ATTEND Family Medicine
DX: Z12.31 Encounter for screening mammogram for malignant neoplasm of breast (principal); Z80.3 Family history of malignant neoplasm of breast; Z78.0 Asymptomatic menopausal state
CPT/HCPCS: 77067

== ENCOUNTER → 2023-09-07 | Day surgery (SDC) | payer BC ==
[2023-09-03 09:19] VITALS: BMI 25.7
[~2023-09-07] MED LIST changes: -DEXAMETHASONE SOD PHOSPHATE 10 MG/ML 1 ML VIAL IV ONE; -HYDROmorphone 1 MG/ML 1 ML SYRINGE IVP PRN; -ONDANSETRON 4 MG/2 ML VIAL IVP ONE; +PROPOFOL 10 MG/ML 20 ML VIAL IV ONE; -Pre Op ABX Message 1 EACH MISC MISCELLANE ONE; -ceFAZolin 2 GM in SODIUM CHLORIDE 0.9% 100 ML IVPB ONE
[2023-09-07 09:41] VITALS: TEMP 97.2
[2023-09-07] MEDS: LACTATED RINGERS 1,000 ML IV ONE ×2 (09:41→10:44)
[2023-09-07] MEDS: LACTATED RINGERS 1,000 ML IV SCH (09:48)
--- NOTE | 2023-09-07 11:12 | P.PCN ---
Date of Procedure: 09/07/23 Procedure(s) Performed: BRIEF HISTORY: Patient is a 48-year-old pleasant white female scheduled for an elective colonoscopy as a part of screening for colorectal neoplasia. PROCEDURE PERFORMED: Colonoscopy and polypectomy. PREOPERATIVE DIAGNOSIS: Screening for colon cancer. IV sedation per Anesthesia. PROCEDURE: After informed consent was obtained, the patient, was brought into the endoscopy unit. IV sedation was administered by Anesthesia under continuous monitoring. Digital rectal examination was normal. Initially the Olympus CF-160 flexible video colonoscope was then inserted in the rectum, gradually advanced into the cecum without any difficulty. Careful examination was performed as the scope was gradually being withdrawn. Ileocecal valve and the appendiceal orifice were visualized and appeared normal. Prep was excellent. Mucosa of the cecum, and a 1 cm sessile polyp removed by snare polypectomy. Ascending colon, had a 2 cm broad-based polyp removed by piecemeal snare polypectomy and complete polypectomy accomplished. In the descending colon there was a 7 mm polyp removed by snare polypectomy. In the distal sigmoid colon there was a 1 cm polyp removed by snare polypectomy. Rest of the sigmoid colon, and rectum appeared normal. Retroflexion was performed in the rectum and no lesions were seen. The patient tolerated the procedure well. IMPRESSION: 1 cm cecal polyp s/p post polypectomy 2 cm ascending colon polyp status post snare polypectomy 7 mm descending colon polyp status post polypectomy 1 cm distal sigmoid colon polyp status post polypectomy RECOMMENDATIONS: Findings of this examination were discussed with the patient as well as her family. She was advised to follow-up with the biopsy results. If the biopsy reveals adenoma she can have repeat colonoscopy in 3 years..
[2023-09-07 11:18] VITALS: RESP 14
[2023-09-07 11:31] VITALS: BP 136/94; PULSE 62
== END ==
LOC: ORWHC2ENDO 08:59
PROVIDERS: ATTEND Internal Medicine Gastroenterology
DX: D37.4 Neoplasm of uncertain behavior of colon (principal); K21.9 Gastro-esophageal reflux disease without esophagitis; Z79.899 Other long term (current) drug therapy
CPT/HCPCS: 88305; 45385; J2704